=== PATIENT | female | born 1980 | race Caucasian/White ===

== ENCOUNTER 2019-05-26 16:51 | Emergency (ER) | payer OTHER, SELFPAY ==
[2019-05-26 16:52] VITALS: BP 123/74; PULSE 66; RESP 16; TEMP 37; O2SAT 99; BMI 25.5
--- NOTE | 2019-05-26 17:33 | ED.VIS.GEN ---
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 she did have that evaluated she does not have a doctor Past Medical History - Allergies and Home Meds Allergies/Adverse Reactions: Allergies sulfamethoxazole [From Bactrim] Allergy (Verified 05/26/19 16:54) Hives trimethoprim [From Bactrim] Allergy (Verified 05/26/19 16:54) Hives Primary Care Physician: NOT,DEFINED [Primary Care Provider] - Past Medical History: - Smoking Status: Never smoker Review of Systems ROS: - Declines as above General: Denies: Chills, Fever, Sweats Eyes: Denies: Visual changes - bilaterally, Diplopia ENT: Denies: Rhinorrhea, Sore throat Cardiovascular: Denies: Chest pain, Palpitations Respiratory: Denies: Dyspnea, Cough, Dyspnea on exertion Gastrointestinal: Denies: Abdominal pain, Nausea, Vomiting, Diarrhea, Melena, Hematochezia Genitourinary: Denies: Dysuria, Hematuria, Frequency Musculoskeletal: Denies: Back pain, Extremity Pain Skin: Denies: Rash, Wounds Neurological: Denies: Headache, Weakness, Numbness Physical Exam Vital Signs/Narrative: Vital Signs Temp Pulse Resp BP Pulse Ox 05/26/19 16:52 98.6 F 66 16 123/74 H 99 General: Well nourished, Well developed, No Acute Distress Head: Normocephalic, Atraumatic Eyes: Perrl, EOMI ENT: Moist mucous membranes, No rhinorrhea Neck: Supple, Nontender Cardiovascular: Regular rate, Regular rhythm, No murmurs Respiratory: No distress, CTA bilaterally, Chest nontender Abdomen: Soft, Nontender, Nondistended, Normal bowel sounds Back: Nontender, Normal Inspection Extremities: Nontender, No edema, - - Patient's right lower extremity exam is unremarkable the thigh is unremarkable the knee popliteal fossa unremarkable she has full range of motion, the distal lower extremity exam is unremarkable for any signs of anything acute there is no signs of trauma no signs of infection no signs of DVT she has full range of motion of her leg she is walking in the emergency without difficulty and she basically points to the medial thigh area as the focus of the pain when she gets it Skin: Normal color, No rash Neurological: Alert, Oriented x3, Cranial nerves II-XII grossly intact, Normal Strength, Normal Sensation Psychological: Normal affect, Normal Mood Diagnostic/Tx/Re-eval - Medical Decision Making This is been a longstanding intermittent problem for years, at this time explained differential to the patient, she is comfortable with discharge home on Naprosyn she will be given referral to outpatient providers, given referral for duplex scan to be done as there is no techs available now and she will return for change in symptoms Home stable Impression final, intermittent right thigh pain for years ED Disposition - Plan for ED Patient: Diagnosis: Right thigh pain Instructions: CONTUSION, Lower Extremity Prescriptions: Naproxen [Naprosyn] 500 mg PO BID PRN #20 tab Prescription Printed Referrals: NOT,DEFINED [Primary Care Provider] -
--- NOTE | 2019-05-26 17:37 | ED.DEP ---
ED Disposition - Plan for ED Patient: Diagnosis: Right thigh pain Instructions: CONTUSION, Lower Extremity Prescriptions: Naproxen [Naprosyn] 500 mg PO BID PRN #20 tab Prescription Printed Referrals: NOT,DEFINED [Primary Care Provider] - Ethan Roberts [NON-STAFF] -
[2019-05-26 18:01] VITALS: BP 123/74; PULSE 66; RESP 18; O2SAT 99
== END 2019-05-26 18:03 | disposition home or self-care (01) ==
LOC: ED 17:56
PROVIDERS: Emergency Provider Emergency Medicine
DX: M79.651 Pain in right thigh (principal); Z88.1 Allergy status to other antibiotic agents; Z88.2 Allergy status to sulfonamides
CPT/HCPCS: 99282